=== PATIENT | female | born 2000 ===

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

== ENCOUNTER 2021-06-30 22:09 | Emergency (ER) | payer BC, OTHER, SELFPAY ==
[2021-07-01] MEDS ORDERED: Rocuronium Bromide 10 MG/ML (10ML VIAL) ONE (17:30)
[2021-07-01] MEDS ORDERED: Ketamine 50 MG/ML (10ML VIAL) ONE (17:30)
[2021-07-01] MEDS ORDERED: Atropine Sulfate 1 mg/10 ml Syringe ONE (17:31)
== END 2021-06-30 23:45 ==
LOC: ERS 22:09
DX: T74.21XA Adult sexual abuse, confirmed, initial encounter (principal)
CPT/HCPCS: 99285; J0461